=== PATIENT | female | born 1985 | race Caucasian/White ===

== ENCOUNTER 2018-04-21 10:11 | Emergency (ER) | payer OTHER ==
[~2018-04-21] VITALS: Ht 160 cm; Wt 75.3 kg
[~2018-04-21 10:11] MED LIST: PREN-39 PO; PROG100C5 PO
[2018-04-21 10:15] VITALS: BP 139/63; PULSE 81; RESP 18; Ht 160 cm; Wt 75.3 kg
[2018-04-21] MEDS ORDERED: predniSONE 20 MG TAB PO ONE (10:30)
[2018-04-21] MEDS ORDERED: IBUPROFEN 600 MG TAB PO ONE (10:30)
[2018-04-21] MEDS ORDERED: AMOX500C2 PO (11:14)
[2018-04-21] MEDS ORDERED: PRED20TA PO (11:14)
[2018-04-21] MEDS ORDERED: IBUP-1542 PO (11:14)
--- NOTE | 2018-04-21 11:18 | ERD ---
ER Documentation Chief Complaint Chief Complaint pt is bib self with c/o left ear pain , sore throat and fever since Tuesday HPI 32-year-old female presents with left ear pain, sore throat fever for the last 4 days. She has no cough or congestion. Children are ill with similar symptoms and are being treated for otitis media. ROS All systems reviewed and are negative except as per history of present illness. Medications Home Meds Active Scripts Amoxicillin* (Amoxicillin*) 500 Mg Cap, 500 MG PO TID for 10 Days, CAP Prov:CHANDLER SANCHEZ MD 04/21/18 Ibuprofen* (Motrin*) 600 Mg Tab, 600 MG PO Q6, #15 TAB Prov:CHANDLER SANCHEZ MD 04/21/18 Prednisone* (Prednisone*) 20 Mg Tab, 40 MG PO DAILY for 3 Days, TAB Prov:CHANDLER SANCHEZ MD 04/21/18 Reported Medications Progesterone,Micronized* (Progesterone*) 100 Mg Capsule, 100 MG PO HS 10/24/12 Vits W-Ca,Fe,Fa(<1MG) ( Vitamins) 1 Tab Tablet, 1 TAB PO 08/11/12 Allergies Allergies: Coded Allergies: No Known Allergy (Unverified , 10/24/12) PMhx/Soc Medical and Surgical Hx: pt denies Medical Hx, pt denies Surgical Hx Hx Alcohol Use: No Hx Substance Use: No Hx Tobacco Use: No Smoking Status: Never smoker FmHx Family History: No diabetes, No coronary disease, No other Physical Exam Vitals Vital Signs Date Temp Pulse Resp B/P (MAP) Pulse Ox O2 O2 Flow FiO2 Time Delivery Rate 04/21/18 98.9 81 18 139/63 99 10:15 (88) Physical Exam Const: No acute distress Head: Atraumatic Eyes: Normal Conjunctiva ENT: Normal External Ears, Nose and Mouth. TMs normal. Tender anterior cervical lymphadenitis. Slight redness in the posterior oropharynx. Uvula midline. No exudate. Tonsils normal size. Neck: Full range of motion. No meningismus. Resp: Clear to auscultation bilaterally Cardio: Regular rate and rhythm, no murmurs Abd: Soft, non tender, non distended. Normal bowel sounds Skin: No petechiae or rashes Back: No midline or flank tenderness Ext: No cyanosis, or edema Neur: Awake and alert Psych: Normal Mood and Affect Results 24 hrs Current Medications Medications Dose Sig/Wendy Start Time Status Last (Trade) Ordered Route PRN Stop Time Admin Dose Reason Admin Ibuprofen 600 mg ONCE ONCE 04/21/18 DC 04/21/18 (Motrin) PO 10:30 04/21/18 10:40 10:31 Prednisone 40 mg ONCE ONCE 04/21/18 DC 04/21/18 (Prednisone) PO 10:30 04/21/18 10:40 10:31 Procedures/MDM Rapid strep negative. Patient presents with URI symptoms, sore throat and ear pain, likely pharyngitis. After shared decision making, recommending short course of prednisone, for lymphadenitis, ibuprofen, patient will be given a prescription for amoxicillin to hold for new or worsening symptoms after a few days but otherwise allow likely viral illness to resolve. There is no evidence of abscess, airway obstruction, additional complications. The patient was stable with no new complaints during the ER course. Clinically, there is no current evidence to suggest meningitis, sepsis, acute abdomen, pneumonia, stroke, acute coronary syndrome, pulmonary embolism, aortic dissection or any other emergent condition appearing to require further evaluation or hospitalization. Patient counseled regarding my diagnostic impression and care plan. Prior to discharge all questions answered. Pt agrees with treatment plan and understands strict return precautions. Pt is instructed to follow up with primary care provider within 24-48 hours. Precautionary instructions provided including instructions to return to the ER if not improving or for any worsening or changing symptoms or concerns. Departure Diagnosis: Primary Impression: Acute sore throat Condition: Stable Patient Instructions: Pharyngitis, Viral Additional Instructions: Strep test negative. Likely viral pharyngitis should resolve the next few days. Okay to hold prescription for amoxicillin. Recheck for new or worsening symptoms with primary care doctor. CHANDLER SANCHEZ MD Apr 21, 2018 11:17
== END 2018-04-21 11:22 | disposition home or self-care (01) ==
LOC: FTE 10:11
DX: J02.9 Acute pharyngitis, unspecified (principal)
CPT/HCPCS: 87880; J7512; Z7502; Z7610; 99283